=== PATIENT | female | born 1970 | race Caucasian/White ===

== ENCOUNTER 2019-01-23 09:15 | Emergency (ER) | payer OTHER ==
[~2019-01-23] VITALS: Ht 170.2 cm; Wt 74.4 kg
[~2019-01-23 09:15] MED LIST: A/B OTIC15 ML; APAP/HYDROCODON1 T13 PO; COL100 PO; DONNATAL1 TAB PO; LAC PO; LEVAQUIN750 MG PO; PRI20 PO
[2019-01-23 09:19] VITALS: Ht 170.2 cm; Wt 74.4 kg
[2019-01-23 10:08] VITALS: BP 159/95
== END 2019-01-23 10:08 | disposition home or self-care (01) ==
LOC: ED 09:15
DX: M25.531 Pain in right wrist (principal); M25.532 Pain in left wrist; R51 Headache; V49.49XA Driver injured in collision with other motor vehicles in traffic accident, initial encounter; Z90.711 Acquired absence of uterus with remaining cervical stump; Y93.I9 Activity, other involving external motion; Y92.413 State road as the place of occurrence of the external cause; Y99.8 Other external cause status; K21.9 Gastro-esophageal reflux disease without esophagitis